=== PATIENT | female | born 1950 | race Two or more races ===

== ENCOUNTER 2020-11-12 13:36 | Outpatient (CLI) | payer OTHER | END 2020-11-12 17:10 | disposition home or self-care (01) | LOC: OFIC 805 13:36 | PROVIDERS: ATTEND Otolaryngology Otology & Neurotology | DX: H93.13 Tinnitus, bilateral (principal); J30.89 Other allergic rhinitis; R09.81 Nasal congestion; H91.8X3 Other specified hearing loss, bilateral ==